=== PATIENT | female | born 1960 | race Caucasian/White ===

== ENCOUNTER 2018-05-21 13:17 | Emergency (ER) | END 2018-05-21 17:10 | disposition home or self-care (01) ==

== ENCOUNTER 2018-10-17 11:27 | Emergency (ER) | payer OTHER ==
[~2018-10-17] VITALS: Ht 157.5 cm; Wt 59.3 kg
[~2018-10-17 11:27] MED LIST: ACET1TAB40 PO; CYCL10TA7 PO; IBUP-1542 PO; NAPR-985 PO; TRAM50TA PO; TRAM50TA2 PO
[2018-10-17 11:29] VITALS: BP 137/77; PULSE 80; RESP 19; Ht 157.5 cm; Wt 59.3 kg
[2018-10-17] MEDS ORDERED: CYCL10TA7 PO (12:39)
[2018-10-17] MEDS ORDERED: NAPR-985 PO (12:39)
[2018-10-17] MEDS ORDERED: HYDR-4011 PO (12:39)
--- NOTE | 2018-10-17 13:22 | ERD ---
ER Documentation Chief Complaint Chief Complaint neck pain x 3 weeks HPI 57-year-old female presenting with neck pain times 3 weeks. Patient denies any falls or traumatic injuries. She states it hurts to move back and forth. She has not taken medications for symptoms. Medical history denies. NKDA. Surgical history denies. Social history denies. Denies any numbness or tingling to her extremities. ROS All systems reviewed and are negative except as per history of present illness. Medications Home Meds Active Scripts Naproxen* (Naprosyn*) 500 Mg Tablet, 500 MG PO BID PRN for PAIN AND/OR INFLAMMATION, #30 TAB Prov:TERENCE ROMAN PA-C 10/17/18 Hydrocodone/Acetaminophen ([place] 5-325 Tablet) 1 Each Tablet, 1 TAB PO Q6H PRN for PAIN, #7 TAB Prov:TERENCE ROMAN PA-C 10/17/18 Cyclobenzaprine Hcl* (Cyclobenzaprine Hcl*) 10 Mg Tablet, 10 MG PO TID, #15 TAB Prov:TERENCE ROMAN PA-C 10/17/18 Acetaminophen with Codeine (Acetaminophen-Cod #3 Tablet) 1 Each Tablet, 1 TAB PO Q6H PRN for PAIN, #14 TAB Prov:BRAD GILL MD 05/21/18 Cyclobenzaprine Hcl* (Cyclobenzaprine Hcl*) 10 Mg Tablet, 10 MG PO TID, #20 TAB Prov:BRAD GILL MD 05/21/18 Naproxen* (Naprosyn*) 500 Mg Tablet, 500 MG PO BID PRN for PAIN AND/OR INFLAMMATION, #30 TAB Prov:MAREN CLEVELAND PA-C 09/16/16 Cyclobenzaprine Hcl* (Cyclobenzaprine Hcl*) 10 Mg Tablet, 10 MG PO Q8 PRN for MUSCLE SPASMS, #20 TAB Prov:SAIRA SMITH PA-C 02/14/16 Tramadol Hcl* (Ultram*) 50 Mg Tablet, 50 MG PO Q6H PRN for PAIN, #20 TAB Prov:SAIRA SMITH PA-C 02/14/16 Ibuprofen* (Motrin*) 600 Mg Tab, 600 MG PO Q6H PRN for PAIN AND OR ELEVATED TE MP, #30 TAB Prov:SAIRA SMITH PA-C 02/14/16 Cyclobenzaprine Hcl* (Cyclobenzaprine Hcl*) 10 Mg Tablet, 10 MG PO TID, #20 TAB Prov:BRAD GILL MD 12/19/15 Tramadol HCl (Tramadol HCl) 50 Mg Tablet, 50 MG PO Q4 PRN for PAIN, #20 TAB Prov:BRAD GILL MD 12/19/15 Allergies Allergies: Coded Allergies: No Known Allergy (Unverified , 09/16/16) PMhx/Soc History of Surgery: Yes (Tubal ligation) Anesthesia Reaction: No Hx Neurological Disorder: No Hx Respiratory Disorders: No Hx Cardiac Disorders: No Hx Psychiatric Problems: No Hx Miscellaneous Medical Probl: Yes (Back pain) Hx Alcohol Use: No Hx Substance Use: No Hx Tobacco Use: No FmHx Family History: No diabetes, No coronary disease, No other Physical Exam Vitals Vital Signs Date Temp Pulse Resp B/P (MAP) Pulse Ox O2 O2 Flow FiO2 Time Delivery Rate 10/17/18 97.6 80 19 137/77 100 11:29 (97) Physical Exam GENERAL: The patient is well-appearing, well-nourished, in no acute distress HEENT: Atraumatic. Conjunctivae are pink. Pupils equal, round, and reactive to light. There is no scleral icterus. Tympanic membranes clear bilaterally. Oropharynx clear. No nystagmus or photophobia. NECK: C-spine is soft and supple. There is no meningismus. There is no cervical lymphadenopathy. Tender to palpation over bilateral paraspinous muscles. CHEST: Clear to auscultation bilaterally. There are no rales, wheezes or rhonchi. HEART: Regular rate and rhythm. No murmurs, clicks, rubs or gallops. No S3 or S4. EXTREMITIES: Strength 5 out of 5 to bilateral upper extremities. Normal range of motion. NEUROLOGIC: Alert and oriented. Cranial nerves II through XII intact. Motor strength in all 4 extremities with 5 out of 5 strength. Sensation grossly intact. Normal speech and gait. SKIN: There is no apparent rash or petechiae. The skin is warm and dry. Procedures/MDM DIAGNOSTIC IMAGING REPORT Patient: KALE JEAN : 1960 Age: 57 Sex: F MR #: [id number] DOS: 10/17/18 1203 Ordering MD: ELÍAS ROMAN PA-C Location: [facility] Room/Bed: PROCEDURE: XR Cervical Spine. CLINICAL INDICATION: Neck pain TECHNIQUE: Three views of the cervical spine were performed. The images were reviewed on a PACS workstation. COMPARISON: MANDEEP LOONEY 09/16/2016 FINDINGS: There is mild straightening of the normal cervical lordosis. There is no acute fracture or dislocation. The vertebral body heights and disc spaces are preserved. There is no significant paraspinal soft tissue swelling. IMPRESSION: 1. No acute fracture or traumatic subluxation. 2. Mild straightening of the normal cervical lordosis. ER Course: Ibuprofen given in ED MDM: 7-year-old female presenting with neck pain. Patient likely has muscular skeletal strain and spasm. I have low suspicion for acute fracture dislocation. I have low suspicion for neuro deficit. Patient is discharged stricter precautions and told to follow-up with primary care within 1-2 days for close evaluation. Patient is told symptoms change or worsen to return immediately to the ER. All questions answered at discharge. Departure Diagnosis: Primary Impression: Neck pain Condition: Stable Patient Instructions: Neck Pain, No Trauma Referrals: COMMUNITY CLINICS YOU HAVE RECEIVED A MEDICAL SCREENING EXAM AND THE RESULTS INDICATE THAT YOU DO NOT HAVE A CONDITION THAT REQUIRES URGENT TREATMENT IN THE EMERGENCY DEPARTMENT. FURTHER EVALUATION AND TREATMENT OF YOUR CONDITION CAN WAIT UNTIL YOU ARE SEEN IN YOUR DOCTORS OFFICE WITHIN THE NEXT 1-2 DAYS. IT IS YOUR RESPONSIBILITY TO MAKE AN APPOINTMENT FOR FOLOW-UP CARE. IF YOU HAVE A PRIMARY DOCTOR --you should call your primary doctor and schedule an appointment IF YOU DO NOT HAVE A PRIMARY DOCTOR YOU CAN CALL OUR PHYSICIAN REFERRAL HOTLINE AT IF YOU CAN NOT AFFORD TO SEE A PHYSICIAN YOU CAN CHOSE FROM THE FOLLOWING [facility] [address] [facility] [address] [facility] [facility] [address] [facility] [address] [facility] [address] [facility]. [facility]. [address] Additional Instructions: FOLLOW UP WITH YOUR PRIMARY CARE PHYSICIAN TOMORROW.Return to this facility if you are not improving as expected. TERENCE ROMAN PA-C Oct 17, 2018 13:22
== END 2018-10-17 13:48 | disposition home or self-care (01) ==
LOC: FTE 11:27
DX: M54.2 Cervicalgia (principal)
CPT/HCPCS: 72040; Z7502

== ENCOUNTER 2018-10-30 16:00 | Emergency (ER) | payer OTHER ==
[~2018-10-30] VITALS: Ht 157.5 cm; Wt 58.6 kg
[~2018-10-30 16:00] MED LIST changes: +HYDR-4011 PO
[2018-10-30 16:13] VITALS: BP 133/69; PULSE 78; RESP 18; Ht 157.5 cm; Wt 58.6 kg
--- NOTE | 2018-10-30 18:39 | ERD ---
ER Documentation Chief Complaint Chief Complaint continued neck pain, worse with talking. Denies trauma/injury. HPI 57-year-old female, returns to the emergency department, complaining of worsening of neck pain, radiating to the right ear and right mandible. The patient has been taking ibuprofen without improvement of the symptoms. She denies fevers, no chills. She refers mild dental pain but no difficulty swallowing. ROS All systems reviewed and are negative except as per history of present illness. Medications Home Meds Active Scripts Baclofen* (Baclofen*) 10 Mg Tablet, 10 MG PO Q8, #15 TAB Prov:JULIAN FONTAINE MD 10/30/18 Ibuprofen* (Motrin*) 400 Mg Tab, 400 MG PO Q8, #30 TAB Prov:JULIAN FONTAINE MD 10/30/18 Amoxicillin* (Amoxicillin*) 500 Mg Cap, 500 MG PO TID for 7 Days, CAP Prov:JULIAN FONTAINE MD 10/30/18 Naproxen* (Naprosyn*) 500 Mg Tablet, 500 MG PO BID PRN for PAIN AND/OR INFLAMMATION, #30 TAB Prov:TERENCE ROMAN PA-C 10/17/18 Hydrocodone/Acetaminophen ([place] 5-325 Tablet) 1 Each Tablet, 1 TAB PO Q6H PRN for PAIN, #7 TAB Prov:TERENCE ROMAN PA-C 10/17/18 Cyclobenzaprine Hcl* (Cyclobenzaprine Hcl*) 10 Mg Tablet, 10 MG PO TID, #15 TAB Prov:TERENCE ROMAN PA-C 10/17/18 Acetaminophen with Codeine (Acetaminophen-Cod #3 Tablet) 1 Each Tablet, 1 TAB PO Q6H PRN for PAIN, #14 TAB Prov:BRAD GILL MD 05/21/18 Cyclobenzaprine Hcl* (Cyclobenzaprine Hcl*) 10 Mg Tablet, 10 MG PO TID, #20 TAB Prov:BRAD GILL MD 05/21/18 Naproxen* (Naprosyn*) 500 Mg Tablet, 500 MG PO BID PRN for PAIN AND/OR INFLAMMATION, #30 TAB Prov:MAREN CLEVELAND PA-C 09/16/16 Cyclobenzaprine Hcl* (Cyclobenzaprine Hcl*) 10 Mg Tablet, 10 MG PO Q8 PRN for MUSCLE SPASMS, #20 TAB Prov:SAIRA SMITH PA-C 02/14/16 Tramadol Hcl* (Ultram*) 50 Mg Tablet, 50 MG PO Q6H PRN for PAIN, #20 TAB Prov:SAIRA SMITH PA-C 02/14/16 Ibuprofen* (Motrin*) 600 Mg Tab, 600 MG PO Q6H PRN for PAIN AND OR ELEVATED TEMP, #30 TAB Prov:SAIRA SMITH PA-C 02/14/16 Cyclobenzaprine Hcl* (Cyclobenzaprine Hcl*) 10 Mg Tablet, 10 MG PO TID, #20 TAB Prov:BRAD GILL MD 12/19/15 Tramadol HCl (Tramadol HCl) 50 Mg Tablet, 50 MG PO Q4 PRN for PAIN, #20 TAB Prov:BRAD GILL MD 12/19/15 Allergies Allergies: Coded Allergies: No Known Allergy (Unverified , 09/16/16) PMhx/Soc History of Surgery: Yes (Tubal ligation) Anesthesia Reaction: No Hx Neurological Disorder: No Hx Respiratory Disorders: No Hx Cardiac Disorders: No Hx Psychiatric Problems: No Hx Miscellaneous Medical Probl: Yes (Back pain) Hx Alcohol Use: No Hx Substance Use: No Hx Tobacco Use: No Smoking Status: Never smoker FmHx Family History: No diabetes, No coronary disease Physical Exam Vitals Vital Signs Date Temp Pulse Resp B/P (MAP) Pulse Ox O2 O2 Flow FiO2 Time Delivery Rate 10/30/18 99.4 78 18 133/69 97 16:13 (90) Physical Exam Const: No acute distress Head: Atraumatic Eyes: Normal Conjunctiva ENT: Normal External Ears Mouth: Poor oral dentition, lower right molar area with edema and tenderness. Neck: Full range of motion. No meningismus. Resp: Clear to auscultation bilaterally Cardio: Regular rate and rhythm, no murmurs Abd: Soft, non tender, non distended. Normal bowel sounds Skin: No petechiae or rashes Back: No midline or flank tenderness Ext: No cyanosis, or edema Neur: Awake and alert Psych: Normal Mood and Affect Results 24 hrs Current Medications Medications Dose Sig/Alissa Start Time Status Last (Trade) Ordered Route PRN Stop Time Admin Dose Reason Admin Ketorolac 30 mg ONCE STAT 10/30/18 DC 10/30/18 Tromethamine IM 20:16 20:33 (Toradol) 10/30/18 20:17 Procedures/MDM Differential diagnosis include but not limited to: Dental abscess, parotitis, sialoadenitis, lymphadenopathy, facial abscess. Low suspicion for systemic infection. Physical examination and clinical presentation consistent most likely with dental infection. During the ED course the patient remained stable, no new complaints. Clinical impression discussed with the patient who agrees with management. The patient is stable to be treated outpatient and will be discharged home. Some side effects of prescribed medications (headache, rash, nausea, vomiting, diarrhea, drowsiness, habituation, bleeding, hypertension, interactions with other medications) were reviewed. The patient was instructed to follow up with the primary care provider and dentist in the next 48h. If symptoms persist, worsen or new symptoms develop, then patient should return to the ED immediately. Instructions explained and given directly by me to the patient [in Latvian] with acknowledgment and demonstrated understanding. Disclaimer: Inadvertent spelling and grammatical errors are likely due to EHR/dictation software use and do not reflect on the overall quality of patient care. Also, please note that the electronic time recorded on this note does not necessarily reflect the actual time of the patient encounter. Departure Diagnosis: Primary Impression: Dental infection Condition: Stable Patient Instructions: Tooth Abscess Additional Instructions: Muchas wilfrido por [facility] para broderick servicio. Esperamos que en broderick visita a la luzmaria de emergencia broderick problema medico haya sido solucionado y que se sienta mucho mejor. Para estar seguros que broderick mejoria sigue en proceso, le pedimos el favor de hacer frank julissa de seguimiento medico con broderick doctor primario en los proximos 2-4 phelps. Lleve con usted estos documentos y las medicinas recetadas. Si carol sintomas empeoran, NO SE ESPERE, por favor regrese a luzmaria de emergencia INMEDIATAMENTE. En susana que usted no tenga un mdico de atencin primaria: Llame al mdico o clnica comunitaria de referencia que aparece abajo bernard las horas de consultorio para hacer frank julissa para que le vean. CLINICAS: [facility] [phone] [facility] [phone] [facility] [phone] [place] [id number] [phone] [place] [address] [phone] [facility]. [phone] JULIAN POSADA MD Oct 30, 2018 18:39
[2018-10-30] MEDS ORDERED: KETOROLAC 30 MG INJ IM STA (20:16)
[2018-10-30] MEDS ORDERED: BACL10TA PO (20:18)
[2018-10-30] MEDS ORDERED: IBUP-1561 PO (20:18)
[2018-10-30] MEDS ORDERED: AMOX500C2 PO (20:18)
== END 2018-10-30 20:41 | disposition home or self-care (01) ==
LOC: FTE 16:00
DX: K04.7 Periapical abscess without sinus (principal)
CPT/HCPCS: 96372; J1885; Z7502

== ENCOUNTER 2019-08-06 17:23 | Emergency (ER) | payer OTHER ==
[~2019-08-06] VITALS: Wt 90.0 kg
[~2019-08-06 17:23] MED LIST changes: +AMOX500C2 PO; +BACL10TA PO; +IBUP-1561 PO
[2019-08-06 20:22] VITALS: BP 140/75; PULSE 80; RESP 18
== END 2019-08-06 20:23 | disposition home or self-care (01) ==
LOC: FTE 17:23
DX: L53.9 Erythematous condition, unspecified (principal); M54.6 Pain in thoracic spine
CPT/HCPCS: 71045; 73140; Z7502